=== PATIENT | female | born 1990 | race Two or more races ===

== ENCOUNTER 2016-09-29 00:32 | Emergency (ER) | payer SELFPAY ==
[~2016-09-29] VITALS: Ht 154.9 cm; Wt 70.3 kg
[2016-09-29 01:18] VITALS: BP 188/110
[2016-09-29] MEDS ORDERED: HYDR-971 PO (01:30)
--- NOTE | 2016-09-29 01:30 | PHYS DOC ---
Past Medical History Past Medical History: No Pertinent History Past Surgical History: Alcohol Use: None Drug Use: None Adult General Chief Complaint Chief Complaint: DENTAL PROBLEM HPI HPI Patient is a 26 year old female who presents with dental pain. The patient reports pain x 1 week to right mandibular teeth. She states she felt some pieces chip off. She saw her dentist on Thursday, taking clindamycin & ibuprofen but pain remains severe & she has jaw swelling. Denies fevers/chills, trismus, abscess, vomiting, difficulty breathing or swallowing. She is to return to the dentist for dental extraction after completing antibiotics. Review of Systems Review of Systems Constitutional: Denies fever or chills HENT: REports dental pain Respiratory: Denies cough or shortness of breath Cardiovascular: Denies chest pain GI: Denies abdominal pain, nausea, vomiting Musculoskeletal: Denies back pain or joint pain Integument: Denies rash Neurologic: Denies headache Current Medications Current Medications Current Medications Medications (Trade) Dose Ordered Sig/Juliana Start Time Stop Time Status Last Admin Dose Admin Acetaminophen/ Hydrocodone Bitart (Lortab 5/325) 2 tab 1X ONCE 09/29/16 02:00 09/29/16 02:01 DC 09/29/16 01:55 2 TAB Allergies Allergies Allergies Coded Allergies Type Severity Reaction Last Updated Verified No Known Drug Allergies 09/29/16 No Physical Exam Physical Exam Constitutional: Well developed, well nourished, no acute distress, non-toxic appearance. HENT: Normocephalic, atraumatic, bilateral external ears normal, oropharynx moist, nose normal. right sided facial swelling, teeth #27-28 severe decay with gingival erythema, no abscess, no trismus. Eyes: conjunctiva normal, no discharge. Cardiovascular: no edema. Lungs & Thorax: no respiratory distress. Abdomen: nondistended. Skin: Warm, dry, no erythema, no rash. Extremities: No deformity Neurologic: Alert and oriented X 3 Current Patient Data Vital Signs Vital Signs Date Time Temp Pulse Resp B/P (MAP) Pulse Ox O2 Delivery O2 Flow Rate FiO2 09/29/16 01:55 16 09/29/16 01:18 98.9 94 99 Room Air 98.9 EKG EKG [] Radiology/Procedures Radiology/Procedures [] Course & Med Decision Making Course & Med Decision Making Pertinent Labs and Imaging studies reviewed. (See chart for details) THe patient presents with dental pain & infection. She has a ride. Gave norco here as well as prescription for 10 tablets of norco for severe breakthrough pain. Continue clindamyin & ibuprofen. Follow up with dentist in 2-2 days. Come back for high fever, difficulty breathing or swallowing, any otherwise worsening condition. DIscharged home in stable condition. [] Dragon Disclaimer Dragon Disclaimer This electronic medical record was generated, in whole or in part, using a voice recognition dictation system. Departure Departure Impression: Primary Impression: Dental infection Disposition: HOME, SELF-CARE Condition: STABLE Referrals: NO PCP (PCP) Patient Instructions: Dental Pain, [id number] Additional Instructions: You were seen in the emergency department today for dental pain and infection. Please continue to take antibiotics and ibuprofen as prescribed by your dentist. Use [place] as needed for breakthrough pain. No drinking alcohol or driving while taking this medication. Follow-up with your dentist if pain continues to be severe. Return to the emergency department for difficult breathing or swallowing, or any otherwise worsening condition. Scripts Hydrocodone/Apap 5-325 (NORCO 5-325 TABLET) 1 Each Tablet 1 TAB PO PRN Q6HRS Y for PAIN, #10 TAB 0 Refills Prov: JULIA ALICEA MD 09/29/16 JULIA ALICEA MD September 29, 2016 01:30
[2016-09-29] MEDS ORDERED: HYDROcodone/APAP 5/325MG 1 TAB TABLET PO ONE (02:00)
== END 2016-09-29 02:00 | disposition home or self-care (01) ==
LOC: ER 00:32
DX: K04.7 Periapical abscess without sinus (principal)
CPT/HCPCS: 99283

== ENCOUNTER 2016-10-18 15:10 | Emergency (ER) | payer SELFPAY ==
[~2016-10-18] VITALS: Ht 154.9 cm; Wt 72.6 kg
[~2016-10-18 15:10] MED LIST: HYDR-971 PO
[2016-10-18 15:18] VITALS: BP 185/100
[2016-10-18] MEDS ORDERED: HYDR-971 PO (15:54)
[2016-10-18] MEDS ORDERED: AMOX1TAB61 PO (15:54)
--- NOTE | 2016-10-18 15:54 | PHYS DOC ---
Past Medical History Past Medical History: No Pertinent History Past Surgical History: Alcohol Use: None Drug Use: None Adult General Chief Complaint Chief Complaint: DENTAL PROBLEM HPI HPI Patient is a 26 year old female with no significant medical history who presents today with right lower gum dental abscess that began yesterday. Patient states she was seen at [facility] on Thursday last week and was started on penicillin. Patient states they could not give him any pain medicine and requested her to take ibuprofen which is not helping with her pain. Patient also states she has an appointment with an oral surgeon on November 04 2016. Patient denies any fever or trismus. Review of Systems Review of Systems Constitutional: See history of present illness Eyes: Denies change in visual acuity, redness, or eye pain [] HENT: Dental pain Respiratory: Denies any cough or shortness of breath Cardiovascular: No additional information not addressed in HPI [] Musculoskeletal: Denies back pain or joint pain [] Integument: Denies rash or skin lesions [] Neurologic: Denies headache, focal weakness or sensory changes [] Endocrine: Denies polyuria or polydipsia [] Allergies Allergies Allergies Coded Allergies Type Severity Reaction Last Updated Verified No Known Drug Allergies 09/29/16 No Physical Exam Physical Exam Constitutional: Well developed, well nourished, no acute distress, non-toxic appearance. [] HENT: Normocephalic, atraumatic, bilateral external ears normal, oropharynx moist, no oral exudates, nose normal. [] Right lower facial area with induration mild in nature consistent of a dental abscess. Right lower molars are missing, this is small abscess on the gum. The abscess is not fluctuant. Tooth #27 and 28 and severely decayed. Eyes: PERRLA, EOMI, conjunctiva normal, no discharge. [] Neck: Normal range of motion, no tenderness, supple, no stridor. [] Cardiovascular:Heart rate regular rhythm, no murmur [] Lungs & Thorax: Bilateral breath sounds clear to auscultation [] Skin: Warm, dry, no erythema, no rash. [] Back: No tenderness, no CVA tenderness. [] Extremities: No tenderness, no cyanosis, no clubbing, ROM intact, no edema. [] Neurologic: Alert and oriented X 3, normal motor function, normal sensory function, no focal deficits noted. [] Current Patient Data Vital Signs Vital Signs Date Time Temp Pulse Resp B/P (MAP) Pulse Ox O2 Delivery O2 Flow Rate FiO2 10/18/16 15:18 98.4 94 19 97 Room Air 98.4 EKG EKG [] Radiology/Procedures Radiology/Procedures [] Course & Med Decision Making Course & Med Decision Making Pertinent Labs and Imaging studies reviewed. (See chart for details) Patient has a dental abscess. She is currently on penicillin. She states she was seen in the ED 2 weeks ago and was given clindamycin which she states she completed but somehow was seen at [facility] dental [facility] on Thursday and was started on penicillin which she states it is not helping with the dental abscess. She would like something for pain. I talked patient at length. Discharge her with 10 tablets of [place] with restriction on the pain medicine that she cannot have the prescription filled if she had any Narcotics in the last 7 days. She was also discharged with Augmentin. She has an appointment with an oral surgeon on November 04 per her statement. Her blood pressure was 185/100. She states she's been told she has hypertension and has never followed up. I emphasized the importance of getting a primary care doctor in following up with high blood pressure. Dragon Disclaimer Dragon Disclaimer This electronic medical record was generated, in whole or in part, using a voice recognition dictation system. Departure Departure Impression: Primary Impression: Dental abscess Additional Impressions: Dentalgia Hypertension, accelerated Disposition: HOME, SELF-CARE Condition: STABLE Referrals: NO PCP (PCP) follow up with your dentist as soon as you can and a primary care doctor for high blood pressure Patient Instructions: Dental Abscess, Hypertension Additional Instructions: You were seen for dental abscess. We put you on Augmentin. Ensure you complete it. Follow-up with your dentist as soon as you can. Your blood pressure was also elevated at 185/100 normal blood pressure is 120/80. Follow-up with a primary care doctor as soon as you can. Scripts Hydrocodone/Apap 5-325 (NORCO 5-325 TABLET) 1 Each Tablet 1-2 TAB PO Q4-6HRS, #10 TAB DO NOT FILL HER RX IF SHE HAS FILLED ANY NARCOTIC PAIN MEDICINE IN THE LAST SEVEN DAYS. SHE MUST FILL AUGMENTIN PRIOR TO NORCO Prov: IZABEL LONGORIA PHP SOFTWARE ENGINEER 10/18/16 Amoxicillin/Potassium Clav (AUGMENTIN 875-125 TABLET) 1 Each Tablet 1 TAB PO BID, #20 TAB Prov: IZABEL LONGORIA APRN 10/18/16 Problem Qualifiers IZABEL LONGORIA APRN Oct 18, 2016 15:54
== END 2016-10-18 15:55 | disposition home or self-care (01) ==
LOC: ER 15:10
DX: K04.7 Periapical abscess without sinus (principal); I10 Essential (primary) hypertension
CPT/HCPCS: 99283